=== PATIENT | male | born 1980 | race Two or more races ===

== ENCOUNTER 2018-09-11 21:58 | Emergency (ER) | payer OTHER ==
[2018-09-11 22:06] VITALS: BP 121/73; PULSE 80; TEMP 98; BMI 22.2
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
== END 2018-09-12 00:05 | disposition home or self-care (01) ==
LOC: JER 21:58
DX: M79.644 Pain in right finger(s) (principal); V48.4XXA Person boarding or alighting a car injured in noncollision transport accident, initial encounter; Y92.488 Other paved roadways as the place of occurrence of the external cause; Y93.89 Activity, other specified; Y99.8 Other external cause status
CPT/HCPCS: 73130-TC-RT-FY; 99282-25

== ENCOUNTER 2018-10-07 07:30 | Day surgery (SDC) | payer OTHER ==
[2018-10-06 11:31] VITALS: BMI 22.2
--- NOTE | 2018-10-07 09:10 | HP ---
Satellite [facility] - Chief Complaint Chief Complaint: right thumb pain, instability History of Present Illness: s/p injury, right thumb History Source: Patient Limitations to Obtaining History: No Limitations - Past Medical History Allergies/Adverse Reactions: Allergies Allergy/AdvReac Type Severity Reaction Status Date / Time No Known Allergies Allergy Verified 10/06/18 11:31 - Current Medications Current Medications: Home Medications Medication Instructions Recorded NK [No Known Home Medication] 09/12/18 Satellite Physical Exam - Physical Examination Vital Signs: Vital Signs Period Temp Pulse Resp BP Sys/Johnson Pulse Ox Last 24 Hr 98.0 F-98.0 F 70-70 20-20 126-126/69-69 100 General Appearance: Well Nourished ENT: Clear Lung: Clear to auscultation Heart: Regular rate & rhythm Breasts: Soft Abdomen: Soft Extremities: No edema Satellite Impression/Plan - Impression/Plan Impression: right thumb UCL (ulnar collateral ligament) tear, instability Operative Procedure: right thumb UCL repair Date to be Performed: 10/07/18
[2018-10-07] MEDS ORDERED: ceFAZolin SODIUM 1 GM VIAL IVPB ONE (10:05)
[2018-10-07] MEDS ORDERED: BUPIVACAINE HCL/PF 0.5% (5MG/ML) 10 ML VIAL IJ ONE (10:20)
[2018-10-07] MEDS ORDERED: LIDOCAINE HCL 1%, 10 MG/ML (20ML VIAL) NR ONE (10:25)
--- NOTE | 2018-10-07 11:28 | OP ---
Operative Note - Note: Operative Date: 10/07/18 Pre-Operative Diagnosis: right thumb UCL (ligament) tear Operation: right thumb UCL repair Implants: Mini Mitek Quick anchor x 2 Surgeon: Chaz Martin Anesthesiologist/URBAN REDEVELOPMENT SPECIALIST: Jeffrye Jenkins Anesthesia: Local, MAC Estimated Blood Loss (mls): 0 Drains, Volume Out (mls): 0 Blood Volume Replaced (mls): 0 Fluid Volume Replaced (mls): 700 Operative Report Dictated: Yes
[2018-10-07 11:42] VITALS: TEMP 97.2
--- NOTE | 2018-10-07 12:03 | OP ---
DATE OF OPERATION: 10/07/2018 PREOPERATIVE DIAGNOSIS: Right thumb ulnar collateral ligament tear. POSTOPERATIVE DIAGNOSIS: Right thumb ulnar collateral ligament tear. PROCEDURE: Ulnar collateral ligament repair. SURGEON: Chaz Heard MD WASTE SPECIALIST: None. ANESTHESIA: Jeffrey Jenkins CRNA SPECIMENS: None. DRAINS: None. BLOOD LOSS: None. BLOOD GIVEN: None. FLUID REPLACEMENT: 500 mL. IMPLANTS: Two mini Mitek Quickanchor suture anchors and Ethibond suture. INDICATIONS: This patient is a 37-year-old male with an acute right thumb ulnar collateral ligament tear. After understanding the potential risks, complications, alternatives, benefits to surgery versus nonsurgical treatment, the patient elected to undergo the procedure. DESCRIPTION OF PROCEDURE: The patient was brought to the operating room. Peripheral IV place. IV sedation given. Then 1 g of IV Ancef was given. MAC anesthesia was induced. He was placed on into the supine position. The right upper extremity was prepped and draped in the usual sterile fashion, elevated, exsanguinated with an Esmarch bandage. Tourniquet inflated to 250 mmHg. The entire was run at 3 loupe magnification. An incision was made within the 1st dorsal webspace crease after 10 mL 0.5% Marcaine, 1% lidocaine mix was injected in and around this area. Subcutaneous hemostasis was achieved with a bipolar cautery. Dissection was done with the Littler scissors down to the ulnar thumb metacarpophalangeal wrist capsule. Although the tissue planes had already started to melt together, I was able to tease the capsule off of the collateral ligament structure after making a longitudinal incision. It was retracted for lateral repair. Next, the ulnar collateral ligament structure looked swollen and edematous. I dissected around its base and insertion into the proximal phalanx where there was a complete tear. It was brought off the proximal phalanx and mobilized. There still was a good structure of the proper and accessory ulnar collateral ligament that I was able to bring up to the ulnar aspect of the proximal phalanx. I then drilled the fold with a 0.062 K-wire and put in a mini Mitek suture anchor Quickanchor. Then holding the thumb in slight flexion and adduction, I used another 0.062 K-wire and pinned the metatarsophalangeal joint in place to take tension off the repair. I like the position of the joint and the K-wire and; therefore, that K-wire was bent, cut, and a green pin cap applied. Next, I used the suture anchor sutures to bring down the accessory and the proper ulnar collateral ligament down to the base of the proximal phalanx. Next, I repeated the process and put in a 2nd suture anchor slightly more dorsal. We brought down the rest of the thickened deep layer of the joint capsule and the dorsal most aspect of the collateral ligament structure, which came down quick nicely as well. I then used the Ethibond sutures to do multiple supplemental stitches between the periosteum and the capsule further reinforcing the ulnar collateral ligament repair. I then did a repair of the superficial most layer of the capsule over the repair. The area was irrigated and washed out. Then 4-0 undyed Vicryl was used to close the deep dermal layer and a final skin reapproximation was done with running subcuticular 4-0 Biosyn stitch. The area was then washed, dried, covered with Steri-Strips, Xeroform at the base of the pin, 4 x 4's, Webril, fluffs between the fingers, and a 4-inch Ortho-Glass splint was applied, wrapped with Coban. Tourniquet was taken down after a total tourniquet time of about 65 minutes. There were no complications during the case. The patient tolerated the procedure well and was brought to the ambulatory recovery room in stable condition. CHAZ HEARD M.D. [id number]
[2018-10-07 12:33] VITALS: BP 106/68; PULSE 62
[2018-10-07] MEDS ORDERED: ONDANSETRON 4 MG/2 ML VIAL IVPUSH PRN (12:33)
[2018-10-07] MEDS ORDERED: oxyCODONE HCL 5 MG TABLET PO PRN ×2 (12:33)
[2018-10-07] MEDS ORDERED: LACTATED RINGERS SOLUTION 1,000 ML IV SCH (12:45)
== END 2018-10-07 12:35 | disposition home or self-care (01) ==
LOC: JASU-SURG 07:30
PROVIDERS: ATTEND Orthopaedic Surgery
PROC: 0MQ70ZZ Repair Right Hand Bursa and Ligament, Open Approach (ICD-10-PCS; 2018-10-07)
PROC: 0MQ70ZZ Repair Right Hand Bursa and Ligament, Open Approach (ICD-10-PCS; principal; 2018-10-07 09:50)
DX: S63.681A Other sprain of right thumb, initial encounter (principal); X58.XXXA Exposure to other specified factors, initial encounter; Y93.9 Activity, unspecified; Y92.9 Unspecified place or not applicable; Y99.9 Unspecified external cause status

== ENCOUNTER 2019-12-01 02:06 | Emergency (ER) | payer OTHER ==
[2019-12-01] MEDS ORDERED: IBUPROFEN 600 MG TABLET (FP) PO ONE ×2 (02:25→02:28)
--- NOTE | 2019-12-01 02:30 | PDOC ---
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 A few hours prior to presentation, patient heard a pop and felt pain at the base of the right thumb in the area where the reconstructive surgery was performed. This occurred when he was applying handcuffs to suspect. No other injury sustained and patient did not impact the thumb against any surface. After pain persisted for an hour, patient presented here. Patient had UCL reconstructive surgery performed by Dr. Martin in Oct, 2018 after injuring the thumb while working during the previous month Medications as noted below No known allergies Non-smoker; no daily alcohol or other recreational drug use Past History - Medical History Allergies/Adverse Reactions: Allergies Allergy/AdvReac Type Severity Reaction Status Date / Time No Known Allergies Allergy Verified 12/01/19 02:32 Home Medications: Ambulatory Orders NK [No Known Home Medication] 12/01/19 Anemia: No Asthma: No Cancer: No Cardiac Disorders: No CVA: No COPD: No CHF: No Dementia: No Diabetes: No GI Disorders: No Disorders: No HTN: No Hypercholesterolemia: No Liver Disease: No Seizures: No Thyroid Disease: No - Surgical History Abdominal Surgery: No Appendectomy: No Cardiac Surgery: No Cholecystectomy: No Lung Surgery: No Neurologic Surgery: No Orthopedic Surgery: Yes - Immunization History Immunization Up to Date: Yes - Psycho-Social/Smoking History Smoking History: Never smoked Have you smoked in the past 12 months: No Review of Systems - Review of Systems Able to Perform ROS?: Yes Comments:: 12 point review of systems is negative except for what is noted in the history of present illness *Physical Exam - Physical Exam GENERAL: Adult male, alert and oriented x3, mild distress secondary to right thumb pain HEAD: Normal with no signs of trauma. EYES: PERRLA, EOMI, sclera anicteric, conjunctiva clear. EXTREMITIES: Right upper extremity moderate tenderness, minimal edema proximal phalanx thumb and first metacarpal; no deformity/ecchymosis Pain reproduced with abduction and adduction of thumb really Remainder the extremity exam is normal NEUROLOGICAL: Cranial nerves II through XII grossly intact. Normal speech. No focal neurological deficits. ED Progress Note - Progress Note Progress Note: As noted above, is 38-year-old man ([place]) with a history of reconstructive surgery of the ulnar collateral ligament of the right thumb presents with pain in the area of the repair after applying handcuffs to a suspect earlier this evening. No other injury sustained. Exam as noted. The area of pain and tenderness is directly in the area of the reconstruction. Since there was no direct impact, bony injury highly unlikely. Therefore, x-ray will not be performed now. The area was immobilized using fixed straight splint and 3 inch gauze wrap. The patient already has an appointment scheduled with his hand surgeon, Dr. Martin for December 05 (patient had had some postoperative paresthesias in the thumb prior to tonight's injury). Ibuprofen 600 mg given to the patient now. No work until seen by Dr. Martin. Patient should keep the splint or the preformed ulnar gutter splint that he has at home in place until seen by Dr. Martin. Ice/elevation to the area of injury should be maintained for the next few days. Patient can use ibuprofen/acetaminophen/naproxen as needed for pain. He should return to the ER if he has severe pain or swelling prior to follow-up with Dr. Martin Discharge - Discharge Information Problems reviewed: Yes Clinical Impression/Diagnosis: Injury of right thumb Qualifiers: Encounter type: initial encounter Qualified Code(s): S69.91XA - Unspecified injury of right wrist, hand and finger(s), initial encounter Condition: Stable Disposition: HOME - Follow up/Referral Referrals: Chaz Martin MD [Staff Physician] - - Patient Discharge Instructions Patient Printed Discharge Instructions: Ulnar Collateral Ligament Sprain of Thumb Additional Instructions: Keep right thumb splint in place Elevate/ice to area of pain for the next 2 days Ibuprofen/naproxen/acetaminophen as needed for pain No work until evaluation by Dr. Martin Follow-up appointment with Dr. Martin on 12/05 as previously arranged Return to ER if you have worsening pain/swelling - Post Discharge Activity
[2019-12-01 02:42] VITALS: BP 142/94; PULSE 74; TEMP 98; BMI 21.5
== END 2019-12-01 02:44 | disposition home or self-care (01) ==
LOC: FER 02:06
DX: S69.91XA Unspecified injury of right wrist, hand and finger(s), initial encounter (principal); Y99.8 Other external cause status
CPT/HCPCS: 99283-25

== ENCOUNTER 2019-12-10 01:09 | Emergency (ER) | payer OTHER ==
--- NOTE | 2019-12-10 01:11 | PDOC ---
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 At that time, he also had mild elbow discomfort; right thumb was splinted in light of the fact that he had a previous ulnar collateral ligament repair. Since that incident, he had follow-up appointment with his hand orthopedist (Dr. Martin) and the thumb is splinted and patient is not working. Follow-up with Dr. Martin for the thumb injury is on December 19. In the last 2 days, patient has had increasing pain in the posterior distal portion of the right upper arm and in the right olecranon process. No previous history of pain/injury in this area. He denies any recent strenuous physical activity involving his right upper arm. Past History - Medical History Allergies/Adverse Reactions: Allergies Allergy/AdvReac Type Severity Reaction Status Date / Time No Known Allergies Allergy Verified 12/01/19 02:32 Home Medications: Ambulatory Orders Diclofenac Sodium [Voltaren -] 75 mg PO BID PRN #20 tablet. 12/10/19 Anemia: No Asthma: No Cancer: No Cardiac Disorders: No CVA: No COPD: No CHF: No Dementia: No Diabetes: No GI Disorders: No Disorders: No HTN: No Hypercholesterolemia: No Liver Disease: No Seizures: No Thyroid Disease: No - Surgical History Abdominal Surgery: No Appendectomy: No Cardiac Surgery: No Cholecystectomy: No Lung Surgery: No Neurologic Surgery: No Orthopedic Surgery: Yes - Immunization History Immunization Up to Date: Yes - Psycho-Social/Smoking History Smoking History: Never smoked Have you smoked in the past 12 months: No Review of Systems - Review of Systems Able to Perform ROS?: Yes Comments:: 12 point review of systems is negative except for what is noted in the history of present illness *Physical Exam - Physical Exam GENERAL: Adult male, alert and oriented x3, no acute distress HEAD: Normal with no signs of trauma. EYES: PERRLA, EOMI, sclera anicteric, conjunctiva clear. EXTREMITIES: Right upper extremitymild tenderness distal posterior upper arm in the region of the triceps tendon; pain reproduced with extension of elbow No step-off or masses palpable; mild tenderness of olecranon process No pain on Supination/pronation of forearm; no tenderness or deformity of radius/ulna Thumb in removable splint; remainder of hand/fingers grossly normal NEUROLOGICAL: Cranial nerves II through XII grossly intact. Normal speech. No focal neurological deficits SKIN: Warm, Dry, normal turgor, no rashes or lesions noted. ED Progress Note - Progress Note Progress Note: This 39-year-old man with a history of right thumb injury 10 days ago (history of ulnar) collateral ligament repair in this thumb presents now with few day history of increasing pain on extension of right elbow and tenderness at the triceps tendon insertion. No recent acute injury/fall. Exam as noted above. Clinical presentation most consistent with triceps tendinitis. Patient currently is not working secondary to his thumb injury and has follow-up with his hand surgeon in 10 days. The patient will use a sling for the next few days and then begin moving the elbow as tolerated. Tonight, Toradol 60 mg IM will be given. Prescription for diclofenac 75 mg twice a day as needed for pain sent to his pharmacy. He will follow-up with Dr. Martin on December 19 as arranged. If he has persistent severe pain in the elbow prior to seeing him, he should return to the ER Discharge - Discharge Information Problems reviewed: Yes Clinical Impression/Diagnosis: Triceps tendonitis Condition: Stable Disposition: HOME - Additional Discharge Information Prescriptions: Diclofenac Sodium [Voltaren -] 75 mg PO BID PRN #[address] tablet.[address] HINTON Reason: Pain - Follow up/Referral Referrals: Chaz Martin MD [Staff Physician] - - Patient Discharge Instructions Patient Printed Discharge Instructions: DI for Tendinitis Additional Instructions: Sling for the next 3 days, then limited elbow movement as tolerated Diclofenac 75 mg twice a day as needed for pain, take with food Follow-up with Dr. Martin on December 19 as previously arranged Return to ER if you have severe pain, swelling, tenderness of the elbow/upper a rm - Post Discharge Activity
[2019-12-10 01:21] VITALS: BP 122/78; PULSE 87; TEMP 99.4; BMI 21.5
[2019-12-10] MEDS ORDERED: KETOROLAC TROMETHAMINE 60 MG/2 ML VIAL IM ONE (01:29)
[2019-12-10] MEDS ORDERED: KETOROLAC TROMETHAMINE 60 MG/2 ML VIAL ONE (01:30)
== END 2019-12-10 01:38 | disposition home or self-care (01) ==
LOC: FER 01:09
PROC: 3E023GC Introduction of Other Therapeutic Substance into Muscle, Percutaneous Approach (ICD-10-PCS; principal; 2019-12-10)
DX: S46.311A Strain of muscle, fascia and tendon of triceps, right arm, initial encounter (principal); Y99.8 Other external cause status
CPT/HCPCS: 99284-25

== ENCOUNTER 2019-12-22 22:58 | Emergency (ER) | payer OTHER ==
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
[2019-12-22 23:36] VITALS: BP 133/90; PULSE 90; TEMP 98.5; BMI 21.5
== END 2019-12-22 23:37 | disposition home or self-care (01) ==
LOC: FER 22:58
DX: H91.92 Unspecified hearing loss, left ear (principal); H93.12 Tinnitus, left ear
CPT/HCPCS: 99282-25

== ENCOUNTER 2020-02-06 11:34 | Emergency (ER) | payer OTHER ==
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
[2020-02-06 11:48] VITALS: BP 137/94; PULSE 73; TEMP 98.1; BMI 21.5
[2020-02-06] MEDS ORDERED: IBUPROFEN 400 MG TABLET (FP) PO ONE ×2 (11:51→11:56)
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
== END 2020-02-06 12:48 | disposition home or self-care (01) ==
LOC: FER 11:34
DX: M79.671 Pain in right foot (principal)
CPT/HCPCS: 73610-TC-RT-FY; 73630-TC-RT-FY; 99283-25

== ENCOUNTER 2022-04-14 08:15 | Day surgery (SDC) | payer BC ==
[2022-04-10 15:34] VITALS: BMI 22.2
[2022-04-14 08:33] VITALS: TEMP 97.6
[2022-04-14 13:36] VITALS: BP 95/56; PULSE 66; RESP 16
== END 2022-04-14 11:36 | disposition home or self-care (01) ==
LOC: FASU-ENDO 08:15
PROVIDERS: ATTEND Internal Medicine Gastroenterology
PROC: 0DJD8ZZ Inspection of Lower Intestinal Tract, Via Natural or Artificial Opening Endoscopic (ICD-10-PCS; principal; 2022-04-14 10:35)
DX: D50.9 Iron deficiency anemia, unspecified (principal); K59.00 Constipation, unspecified